=== PATIENT | female | born 1940 | race Caucasian/White ===

== ENCOUNTER 2018-08-10 21:20 | Inpatient (IN) ==
[2018-08-10] MEDS ORDERED: 0.9 % Sodium Chloride 500 ML IVC ONE (22:51)
[2018-08-10] MEDS ORDERED: valACYclovir 500 MG TABLET PO SCH (23:00)
[2018-08-10 23:23] LABS: Basophils % 0.2 %; Eosinophils % 0.6 %; Hemoglobin 12.4 g/dL (11.5-15.4); Immature Granulocytes % 0.2 % (0-4); Lymphocytes # 0.9 K/mcL (0.6-4.6); Lymphocytes % 18.5 %; Mean Corpuscular HGB Conc 34.4 g/dL (31.6-35.5); Mean Corpuscular Hemoglobin 31.1 pg (28.0-33.3); Mean Corpuscular Volume 90.2 fL (83.0-100.0); Mean Platelet Volume 11.3 fL (9.4-12.4); Monocytes # 0.4 K/mcL (0.0-1.3); Monocytes % 7.6 %; Neutrophils # 3.5 K/mcL (1.6-8.9); Platelet Count 138 K/mcL (140-400); Red Blood Count 3.99 M/mcL (3.82-4.97); Red Cell Distribution Width 12.3 % (11.5-14.5); Segmented Neutrophils % 72.9 %
[2018-08-10 23:40] LABS: Alanine Aminotransferase 10 Units/L (7-52); Albumin 3.3 g/dL (3.5-5.7); Albumin/Globulin Ratio 1.3 (1.1-2.2); Alkaline Phosphatase 44 Units/L (34-104); Aspartate Amino Transferase 19 Units/L (13-39); BUN/Creatinine Ratio 14 (6-26); Bilirubin,Total 1.1 mg/dL (0.3-1.0); Blood Urea Nitrogen 15 mg/dL (8-23); Calcium 8.1 mg/dL (8.6-10.3); Carbon Dioxide 23 mEq/L (23-29); Chloride 96 mEq/L (98-107); Globulin 2.5 g/dL (2.4-3.5); Glucose 161 mg/dL (70-105); Magnesium 1.4 mg/dL (1.6-2.6); Osmolality,Calculated 272 (280-300); Potassium 2.9 mEq/L (3.5-5.1); Sodium 129 mEq/L (136-145); Total Protein 5.8 g/dL (6.4-8.9); Troponin I < 0.03 ng/mL (< 0.04); eGFR For Non-African Americans 51 (> 60)
[2018-08-10] MEDS ORDERED: Magnesium Oxide 400 MG TABLET PO ONE (23:54)
--- NOTE | 2018-08-10 23:56 | Emergency Department Note ---
Disposition Clinical Impression: Hyponatremia Disposition: Admitted As Inpatient Condition: Fair Time of Disposition: 23:56 General Adult HPI - General Chief complaint: ED Upper Respiratory Infection Stated complaint: Flu symptoms Time Seen by Provider: 08/10/18 22:35 Source: patient, family Limitations: no limitations Nursing Notes Reviewed: Yes Vital Signs Reviewed: Yes - History of Present Illness HPI Narrative: Ms. Soto about 10 days ago as having symptoms of bronchitis with a cough and sore throat. She received prednisone and doxycycline and is feeling better. About 3 days ago she noticed some burning and tingling on her left side and noticed that she had a red rash which seems to be getting a little bit worse. She since stopped the doxycycline and the prednisone thinking they might be jasmin rits for the rash. She did have chickenpox as a child. No fever no chills in terms of the cough and bronchitis symptoms she is actually feeling a lot better. She came to the emergency department today accompanied by her and son because she passed out 3 times today. She remembers each event and was standing each time and noticed that she felt very dizzy and lightheaded. Up until about 3 days ago she was having some diarrhea. Denies any blood in the stool. She has had a normal stool since then but has had no appetite and very little by mouth intake. She has not been taking her medications either. No nausea or vomiting but as above no appetite which is limited her by mouth intake. Before the syncopal episodes she denies any chest pain abdominal pain palpitations or headache. Her tells me that she was unresponsive for at least a couple of minutes each time however Ms. Soto herself does remember each event and her trying to get her attention. She does have a heart history with a stent placement 4 but is never had syncopal episodes before. Pain Scale: 9 - Related Data Home Medications Medication Instructions Recorded Confirmed Aspirin [Lo-Dose Aspirin EC] 81 mg PO DAILY 07/18/16 08/10/18 Atorvastatin Calcium [Lipitor] 80 mg PO DAILY 07/18/16 08/10/18 Metoprolol [Lopressor] 100 mg PO DAILY 07/18/16 08/10/18 Potassium Chloride [Klor-Con 10 meq PO QID 07/18/16 08/10/18 Sprinkle] metFORMIN [Glucophage] 1,000 mg PO BIDWM 07/18/16 08/10/18 Doxycycline Hyclate 100 mg PO BID 08/10/18 08/10/18 Lisinopril [Zestril] 20 mg PO DAILY 08/10/18 08/10/18 PredniSONE [Deltasone] 40 mg PO DAILY 08/10/18 08/10/18 hydroCHLOROthiazide 25 mg PO DAILY 08/10/18 08/10/18 [Hydrochlorothiazide] Allergies Allergy/AdvReac Type Severity Reaction Status Date / Time No Known Allergies Allergy Verified 08/10/18 21:39 Constitutional: Denies: fever, chills ENT ED: Denies: throat pain, congestion Cardiovascular: Reports: syncope. Denies: chest pain, palpitations, dyspnea on exertion Respiratory: Denies: cough, dyspnea Gastrointestinal: Reports: diarrhea. Denies: abdominal pain, nausea, vomiting Genitourinary: Denies: urgency, dysuria, frequency Musculoskeletal: Reports: back pain (Associated with rash) Integumentary: Reports: rash Neurological: Denies: headache Endocrine: Reports: fatigue Hematological/Lymphatic: Denies: easy bleeding, easy bruising Past Medical History - Past Medical History Medical history: Reports: arthritis, coronary artery disease, diabetes, hyperlipidemia, hypertension, other Surgical history: Reports: appendectomy, cholecystectomy, hysterectomy Psychiatric history: Reports: no psych history CLINICAL EDITOR history: Reports: bilateral tubal ligation - Social History Smoking Status: Never smoker Smokeless Tobacco Status: No Alcohol use: Reports: none Drug use: Reports: none Physical Exam - General Limitations: no limitations General appearance: alert, in no apparent distress - Head Head exam: atraumatic, normocephalic - Eye Eye exam: Present: normal appearance, PERRL, EOMI - ENT ENT exam: normal oropharynx, mucous membranes dry, normal external ear exam - Neck Neck exam: Present: normal inspection, other (Supple). Absent: lymphadenopathy - Chest Chest inspection: Present: normal inspection, symmetric chest wall rise - Respiratory Respiratory exam: Present: normal lung sounds bilaterally. Absent: respiratory distress, wheezes, stridor - Cardiovascular Cardiovascular exam: Present: regular rate, normal rhythm, normal heart sounds. Absent: systolic murmur, diastolic murmur - Abdominal Exam Abdominal exam: Present: soft, Non-Tender - Extremities Exam Extremities exam: Present: normal inspection. Absent: pedal edema - Neurological Exam Neurological exam: Present: alert, CN II-XII intact. Absent: motor sensory deficit - Psychiatric Psychiatric exam: Present: normal affect, normal mood - Skin Skin exam: Present: warm, dry, rash (Erythematous rash with groups of vesicles left flank and left abdomen.) Course Vital Signs Temperature 98.0 F 08/10/18 21:25 Pulse Rate 91 08/10/18 21:25 Respiratory Rate 20 08/10/18 21:25 Blood Pressure 121/58 08/10/18 21:25 O2 Sat by Pulse Oximetry 99 08/10/18 21:25 Temperature 98.0 F 08/10/18 21:25 Pulse Rate 84 08/11/18 00:00 Respiratory Rate 18 08/11/18 00:00 Blood Pressure 113/58 08/11/18 00:00 O2 Sat by Pulse Oximetry 100 08/11/18 00:00 Oxygen Delivery Oxygen Delivery Room Air Medical Decision Making - MDM Narrative Medical decision making narrative: Hyponatremia. This is significantly low compared to past values. Might be prudent to hydrate her with 0.9 overnight and rechecked this in the morning. She and are in agreement with admission. They name Dr. Fofana as their primary care physician. He was called and the case was presented. He accepted admission. She is in stable condition at transfer. Hypokalemia. K rider was added 20 mEq here in the emergency department and will be rechecked in the morning. Hypomagnesemia. 800 mg magnesium oxide by mouth was given and tolerated well. Herpes zoster. Rash is most consistent with this etiology. Valtrex 1 g given here in the ER which she tolerated well. - Lab Data Lab results reviewed: Yes I reviewed the patient's lab results. Result diagrams: 08/10/18 23:20 08/10/18 23:20 Lab Results 08/10/18 08/10/18 Range/Units 23:20 23:20 WBC 4.9 (4.3-11.1) K/mcL RBC 3.99 (3.82-4.97) M/mcL Hgb 12.4 (11.5-15.4) g/dL Hct 36.0 (35.3-44.9) % MCV 90.2 (83.0-100.0) fL MCH 31.1 (28.0-33.3) pg MCHC 34.4 (31.6-35.5) g/dL RDW 12.3 (11.5-14.5) % Plt Count 138 L (140-400) K/mcL MPV 11.3 (9.4-12.4) fL Immature Gran % 0.2 (0-4) % Seg Neutrophils % 72.9 % Lymphocytes % 18.5 % Monocytes % 7.6 % Eosinophils % 0.6 % Basophils % 0.2 % Neutrophils # 3.5 (1.6-8.9) K/mcL Lymphocytes # 0.9 (0.6-4.6) K/mcL Monocytes # 0.4 (0.0-1.3) K/mcL Eosinophils # 0.0 (0.0-0.6) K/mcL Basophils # 0.0 (0.0-0.2) K/mcL Sodium 129 L (136-145) mEq/L Potassium 2.9 L (3.5-5.1) mEq/L Chloride 96 L (98-107) mEq/L Carbon Dioxide 23 (23-29) mEq/L BUN 15 (8-23) mg/dL Creatinine 1.04 (0.60-1.20) mg/dL Est GFR ( Amer) > 60 (> 60) Est GFR (Non-Af Amer) 51 L (> 60) BUN/Creatinine Ratio 14 (6-26) Glucose 161 H (70-105) mg/dL Calculated Osmolality 272 L (280-300) Calcium 8.1 L (8.6-10.3) mg/dL Magnesium 1.4 L (1.6-2.6) mg/dL Total Bilirubin 1.1 H (0.3-1.0) mg/dL AST 19 (13-39) Units/L ALT 10 (7-52) Units/L Alkaline Phosphatase 44 (34-104) Units/L Troponin I < 0.03 (< 0.04) ng/mL Serum Total Protein 5.8 L (6.4-8.9) g/dL Albumin 3.3 L (3.5-5.7) g/dL Globulin 2.5 (2.4-3.5) g/dL Albumin/Globulin Ratio 1.3 (1.1-2.2) - EKG Data EKG #1 EKG attestation: Yes I reviewed and interpreted this EKG. EKG results narrative: EKG as interpreted by me normal sinus rhythm [address] elevations or depressions. Normal axis. No evidence of hypertrophy. T-wave flattening in aVF. No comparison available.
[2018-08-11] MEDS ORDERED: Magnesium Oxide 400 MG TABLET PO ONE (00:51)
[2018-08-11] MEDS ORDERED: 0.9 % Sodium Chloride 1,000 ML IVC SCH (00:51)
[2018-08-11] MEDS ORDERED: Ondansetron ODT 4 MG TAB.RAPDIS SL PRN (00:51)
[2018-08-11] MEDS ORDERED: Naloxone 0.4 MG/ML INJ IVP PRN (00:51)
[2018-08-11] MEDS ORDERED: Ketorolac 30 MG/ML VIAL IVP ONE (02:05)
[2018-08-11] MEDS: 0.9 % Sodium Chloride w KCl 20 MEQ/1,000 ML MLS IVC SCH ×2 (02:28→10:55)
[2018-08-11] MEDS: *HR* Enoxaparin 40 MG/0.4 ML SYRINGE SQ SCH (05:26)
--- NOTE | 2018-08-11 06:57 | Internal Med History&Physical ---
Date of Encounter: 08/13/18 Time of Encounter: 06:52 Assessment and Plan (1) Syncope Status: Acute Patient has a history of 2 syncopal episodes at home. Likely due to poor by mouth intake, her recent illness, electrolyte imbalance, and her shingles. She was hypotensive in the ER where her blood pressure was 93/50 and is now improved after IV fluids. Currently I do not see any acute neurological changes. classroom monitor shows normal sinus rhythm. We will continue with IV fluids, correct electrolyte imbalance, watches his she regains her ADLs. Would also add a chest x-ray if not done in the ER as well as a 12-lead EKG. I doubt CT of the head indicated as she is neurologically intact at this time. Qualifiers: Syncope type: unspecified Qualified Code(s): R55 - Syncope and collapse (2) Hypokalemia Status: Acute Severe hypokalemia likely secondary to her diarrhea, poor oral intake and her cessation of her potassium and she takes 4 times a day at home. We will replace intravenously as well as orally. She is on a cardiac surgeon and no dysrhythmias noted of note seen. (3) Hyponatremia Status: Acute History of hyponatremia of 129 on admission. Likely related to her diarrhea, poor oral intake and her hydrochlorothiazide use. IV saline as been initiated. We will follow. We will hold her hydrochlorothiazide for now. (4) Shingles Status: Acute Acute shingles and has started Valtrex. We will continue 1000 mg 3 times a day for 7 days. She does not tolerate prednisone. We will add gabapentin in addition to Toradol for pain control. She is currently in isolation. Qualifiers: Herpes zoster complications: without complications Qualified Code(s): B02.9 - Zoster without complications (5) History of coronary artery disease Status: Acute No angina or CHF. She is on a cardiac surgeon. (6) Diabetes mellitus Status: Acute History of diabetes mellitus. We will resume her usual dose of metformin and follow her blood sugars and her oral intake. Qualifiers: Diabetes mellitus type: type 2 Diabetes mellitus continuous churn buttermaker insulin use: without continuous churn buttermaker use Diabetes mellitus complication status: without complication Qualified Code(s): E11.9 - Type 2 diabetes mellitus without complications (7) Hypertension Status: Acute Long-standing history of hypertension. In the ER apparently she was hypotensive with blood pressure initially 93/50. Continue IV fluids and was see how she does when she is on her feet. Qualifiers: Hypertension type: essential hypertension Qualified Code(s): I10 - Essential (primary) hypertension Internal Medicine - H&P: HPI Chief complaint: I passed out at home Admitted From: Emergency Dept Plans for Post Hospital Care: Home History of present illness: Ms. Soto is a 77 year old female with known history of hypertension, diabetes, CAD with previous stent placement is generally of good health for her age was admitted from the emergency room with history of hyponatremia hypokalemia and syncopal episode 2 Patient states that she was doing well until about a week ago she started having a productive cough with green sputum and diarrhea. She happened to be in [facility] and went to an urgent care there and was treated for bronchitis with prednisone and doxycycline. She states to the prednisone made her feel bad and she could not sleep for 3 days so she stopped the medication. She had very little to eat or drink for 3 days. She also stopped all of her chronic medications. It was about that time she started getting shingles rash on her abdomen that radiates around to her back. She states the diarrhea had stopped after having it for about a week. She has had no fever but still has some chills yesterday. She states that she "passed out" twice on day of admission. She was getting up off the couch to go the bathroom and she was woozy and nauseated and had a witnessed syncopal episode as her was there. "I felt woozy and lightheaded and had severe nausea" and then I went down apparently. She was not out for long. No seizure activity, no unilateral focal deficit, no chest pain, no palpitations, no trauma. Family brought her to the emergency room. She was found to have a sodium 129 and potassium of 2.9. She typically takes potassium supplement 4 times a day at home, has had none for several days now that she has been ill. Her initial blood pressure was 93/50 is now improved after IV fluids. She states now she feels better. She denies any chest pain, palpitations, dyspnea, abdominal pain, nausea. Biggest complaint is pain from the shingles. She was given IV Toradol through the night as well as Tylenol. Past Med Surg Social Fam HX - Past Medical History Medical history: arthritis, coronary artery disease, diabetes, hyperlipidemia, hypertension Additional medical history: urinary frequency at times Psychiatric history: no psych history - Past Surgical History Surgical History: appendectomy, cholecystectomy, hysterectomy Additional surgical history: 4 CARDIAC Stents r70qbmpi ago, bladder prolapse - Social History Smoking Status: Never smoker Smokeless Tobacco Status: No Alcohol use: none Drug use: none Current living situation: Home - Independent Activity Level: Independent ambulation Recent Out of Country Travel Within the Last 8 Weeks: No Exposure or Possible Exposure to Illness During Travel: No - Family History Mother Living Status: Age at : 32 Cause of : in her sleep Hx Family Cancer: Yes Father Living Status: Age at : 44 Cause of : Lung cancer Hx Family Cancer: Yes Sister Living Status: Hx Family Cancer: Yes Internal Medicine - H&P: Meds Aspirin [Lo-Dose Aspirin EC] 81 mg PO DAILY 07/18/16 [History] Atorvastatin Calcium [Lipitor] 80 mg PO DAILY 07/18/16 [History] Metoprolol [Lopressor] 100 mg PO DAILY 07/18/16 [History] Potassium Chloride [Klor-Con Sprinkle] 10 meq PO QID 07/18/16 [History] metFORMIN [Glucophage] 1,000 mg PO BIDWM 07/18/16 [History] Lisinopril [Zestril] 20 mg PO DAILY 08/10/18 [History] Acetaminophen [Tylenol] 1,000 mg PO Q6HR PRN tablet 08/11/18 [Rx] Gabapentin [Neurontin] 300 mg PO TID 10 Days #30 capsule 08/11/18 [Rx] Ketorolac [Toradol] 10 mg PO Q6HR PRN #20 tablet 08/11/18 [Rx] Valacyclovir HCl [Valtrex] 1,000 mg PO TID 7 Days #21 tab 08/11/18 [Rx] Allergy/AdvReac Type Severity Reaction Status Date / Time No Known Allergies Allergy Verified 08/10/18 21:39 - Constitutional Constitutional: anorexia, chills, fatigue, falls (Syncopal episode 2), lethargy, no fever(s) - EENT Eyes: no change in vision Ears: no ear discharge, no ear pain Nose, mouth and throat: sore throat (She has had a bit of a tickle in her throat from coughing), no dry mouth, no neck pain - Cardiovascular Cardiovascular ROS IM: lightheadedness (And syncope 2), syncope (As in history of present illness), no chest pain, no diaphoresis, no dyspnea, no dyspnea on exertion, no edema, no palpitations - Respiratory Respiratory: cough (She has had some green sputum production with her bronchitis), no wheezing, no pain on inspiration - Gastrointestinal Gastrointestinal: diarrhea (Diarrhea is now resolved with the past couple of days.), nausea (Nausea but no vomiting) - Genitourinary Genitourinary: flank pain (Patient has flank pain from the shingles), no dysuria Menstruation: post hysterectomy - Musculoskeletal Musculoskeletal ROS IM: back pain (Pain from her shingles in the back radiating to the abdomen) - Integumentary Integumentary IM: rash (Shingles rash on her left flank and around to the left upper abdomen and lower chest region) - Neurological Neurological ROS: frequent falls (Syncopal episode 2), weakness, other (Syncope twice as in history of present illness) - Psychiatric Psychiatric: no difficulty concentrating, no visual hallucinations - Constitutional Vitals: Temp Pulse Resp BP Pulse Ox 97.7 F 85 16 121/76 96 08/11/18 04:00 08/11/18 04:00 08/11/18 04:00 08/11/18 04:00 08/11/18 04:00 General appearance: Present: A&O X 3, no acute distress, answers questions appropriately - Head Head exam: Present: atraumatic - Eye Eye exam: Present: EOMI. Absent: nystagmus - ENT ENT exam: Present: mucous membranes moist, normal oropharynx, TM's normal bilaterally - Neck Neck exam general surgery: Absent: lymphadenopathy, tenderness, nuchal rigidity, thyromegaly - Respiratory Respiratory exam: Present: CTAB - Cardiovascular Cardiovascular exam: Present: RRR, +S1, +S2 - GI/Abdominal GI/Abdominal exam: Present: soft. Absent: hepatomegaly, mass, tenderness - Extremities Exam Extremities exam: Present: full ROM. Absent: calf tenderness, pedal edema, tenderness - Neurological Exam Neurological exam: Present: alert, CN II-XII intact, oriented X3, no focal deficits. Absent: speech deficit - Skin Additional comments: Large erythematous vesicular rash on her back on the left side at approximately T10-T12 with extension around to the left upper abdomen and lower chest area consistent with herpes zoster. Most the vesicles are open and not crusted Internal Med - H&P Results - Labs CBC & Chem 7: 08/10/18 23:20 08/12/18 05:30 Labs: Short CBC 08/10/18 Range/Units 23:20 WBC 4.9 (4.3-11.1) K/mcL Hgb 12.4 (11.5-15.4) g/dL Hct 36.0 (35.3-44.9) % Plt Count 138 L (140-400) K/mcL Neutrophils # 3.5 (1.6-8.9) K/mcL BMP 08/10/18 23:20 Sodium 129 L Potassium 2.9 L Chloride 96 L Carbon Dioxide 23 BUN 15 Creatinine 1.04 Glucose 161 H Calcium 8.1 L Cardiac Enzymes 08/10/18 Range/Units 23:20 Troponin I < 0.03 (< 0.04) ng/mL Liver Function 08/10/18 Range/Units 23:20 Total Bilirubin 1.1 H (0.3-1.0) mg/dL AST 19 (13-39) Units/L ALT 10 (7-52) Units/L Alkaline Phosphatase 44 (34-104) Units/L Albumin 3.3 L (3.5-5.7) g/dL Labs have been reviewed. Admission sodium 129, potassium 2.9. Surprisingly her renal function is good. Troponin is less than 0.03. Surprisingly her white blood cell count is normal.
[2018-08-11 07:04] LABS: BUN/Creatinine Ratio 12 (6-26); Blood Urea Nitrogen 12 mg/dL (8-23); Calcium 7.5 mg/dL (8.6-10.3); Carbon Dioxide 26 mEq/L (23-29); Chloride 98 mEq/L (98-107); Glucose 131 mg/dL (70-105); Osmolality,Calculated 276 (280-300); Potassium 3.2 mEq/L (3.5-5.1); Sodium 132 mEq/L (136-145); eGFR For Non-African Americans 53 (> 60)
[2018-08-11] MEDS: Metoprolol 100 MG TABLET PO SCH (08:44)
[2018-08-11] MEDS: Lisinopril 20 MG TABLET PO SCH (08:45)
[2018-08-11] MEDS: *HR* Metformin 500 MG TABLET PO SCH ×2 (08:45→16:38)
[2018-08-11] MEDS: Aspirin Enteric Coated 81 MG Tablet PO SCH (08:45)
--- NOTE | 2018-08-11 08:57 | Electrocardiograph Report ---
[place] [id number] Test Date: 2018-08-10 Pat Name: Haydee Soto Department: [facility]2 Room: 113 Gender: F Physics Department Chair: : 1940 Requested By: Edilberto Phelps Order Number: [id number] Reading MD: Christopher Williamson Measurements Intervals [place] Rate: 89 P: 53 IN: 132 QRS: 5 QRSD: 89 T: 29 QT: 364 QTc: 443 Interpretive Statements Sinus rhythm Atrial premature complex Electronically Signed On 08-11-2018 8:56:11 EST by Christopher Williamson
[2018-08-11] MEDS ORDERED: valACYclovir 500 MG TABLET PO SCH (09:00)
[2018-08-11] MEDS: valACYclovir 500 MG TABLET PO SCH ×3 (10:53→20:12)
[2018-08-11] MEDS: Gabapentin 300 MG CAPSULE PO SCH ×3 (10:54→20:11)
[2018-08-11] MEDS ORDERED: Ketorolac 30 MG/ML VIAL IVP PRN (11:04)
[2018-08-11 12:23] LABS: Potassium 4.3 mEq/L (3.5-5.1)
--- NOTE | 2018-08-11 12:37 | Discharge Summary ---
- NOTES TO OUTPATIENT PROVIDER Notes to Outpatient Provider: #1. Order for follow-up BMP arranged. #2. Meds for shingles include Toradol, Valtrex and gabapentin (patient does not tolerate prednisone) Date of Encounter: 08/12/18 Time of Encounter: 10:15 - Discharge Diagnosis (1) Syncope Priority: Primary Status: Acute Comments: Patient had 2 syncopal episodes at home. She had no cardiac or respiratory symptoms are related to this. Workup in the ER included electrolytes renal function and monitoring. She had hyponatremia, hypokalemia and history of recent bronchitis as well as diarrhea. Likely it was a vasovagal type episode or related to her electrolytes and acute illness. She also is suffering from shingles. She had no further syncopal type symptoms. After rehydration, replacement of potassium sodium, treatment for her shingles she was able to be up and about and able to be discharged to home for ongoing medical care. program checker remained in normal sinus rhythm. Qualifiers: Syncope type: unspecified Qualified Code(s): R55 - Syncope and collapse (2) Hypokalemia Priority: Secondary Status: Acute Comments: Her severe hypokalemia was likely related to her being ill, poor oral intake, diarrhea, and not taking her potassium 4 times a day that she takes chronically. She also has long-standing history of taking hydrochlorothiazide. She was given potassium boluses intravenously as well as oral supplement. Her hydrochlorothiazide was held. Her diet resumed and was doing well. Discharge potassium was normal. She will restart her potassium 4 times a day and follow up lab work has been ordered. She had no cardiac dysrhythmias noted on monitor. (3) Hyponatremia Priority: Secondary Status: Acute Comments: Patient has severe hyponatremia on admission. Likely from her poor oral intake, diarrhea, as well as long-standing hydrochlorothiazide use. She was given saline. Her sodium improved dramatically. She is able to resume normal diet. By time of discharge she was up and ambulatory and safe for discharge. Follow- up lab work has been ordered. (4) Shingles Priority: Secondary Status: Acute Comments: Patient has relatively severe case of shingles in the left back radiating around to the right upper abdomen low chest area. She did not tolerate prednisone for her bronchitis. She was placed on gabapentin which seem to do a very good job controlling the pain. This may made her a bit sleepy though. She was given Toradol on occasion as well. Biggest complaint was itching. At discharge she was placed on continued Valtrex, gabapentin, and Toradol. She will follow-up in the office. No secondary infection or complication noted. Qualifiers: Herpes zoster complications: without complications Qualified Code(s): B02.9 - Zoster without complications (5) History of coronary artery disease Priority: Secondary Status: Acute Comments: Long-standing history of coronary artery disease but no angina or CHF noted. Monitoring showed no dysrhythmia. (6) Diabetes mellitus Priority: Secondary Status: Acute Comments: Long staying history of diabetes under good control. She had no hypoglycemia noted. Last glycohemoglobin 6.6% in February. Qualifiers: Diabetes mellitus type: type 2 Diabetes mellitus custodial insulin use: without terminal make up operator use Diabetes mellitus complication status: without complication Qualified Code(s): E11.9 - Type 2 diabetes mellitus without complications (7) Hypertension Priority: Secondary Status: Acute Comments: Long-standing history of hypertension she takes hydrochlorothiazide but this was held because of electrolyte imbalance. She will continue with lisinopril. We will monitor pressures at home as well. Follow-up is scheduled in the office. Qualifiers: Hypertension type: essential hypertension Qualified Code(s): I10 - Essential (primary) hypertension (8) Vomiting Priority: Secondary Status: Acute Comments: The patient had been hospitalized for about 12 hours or so she had an episode of vomiting without any prodromal symptoms. Her examination was unremarkable. Subsequently she was able to resume oral intake without further vomiting. She did have 3 episodes of diarrhea/loose stools during the hospital stay. The vomi ting delayed her discharge to the next morning as she had already had electrolyte imbalance issues. At this point I do not feel further GI workup warranted. Qualifiers: Vomiting type: unspecified Vomiting Intractability: non-intractable Nausea presence: without nausea Qualified Code(s): R11.11 - Vomiting without nausea Hospital course: Ms. Soto is a 77 year old female is admitted from the ER after having had 2 syncopal episodes. She is found to be severely hypo-kalemia, hyponatremic and have shingles. Please see the above diagnoses. By time of discharge patient was ambulatory, tolerating oral intake adequately, adequate pain control and potassium was normal and sodium near normal. She will follow-up in the office in a few days. Discharge discussed with: patient - Time Spent with Patient Total time spent providing and/or coordinating discharge services: - Discharge Medications Prescriptions: New Acetaminophen [Tylenol] 1,000 mg PO Q6HR PRN tablet PRN Reason: Fever/Pain Ketorolac [Toradol] 10 mg PO Q6HR PRN #20 tablet PRN Reason: Mild Pain Gabapentin [Neurontin] 300 mg PO TID 10 Days #30 capsule Valacyclovir HCl [Valtrex] 1,000 mg PO TID 7 Days #21 tab Continue metFORMIN [Glucophage] 1,000 mg PO BIDWM Potassium Chloride [Klor-Con Sprinkle] 10 meq PO QID Metoprolol [Lopressor] 100 mg PO DAILY Atorvastatin Calcium [Lipitor] 80 mg PO DAILY Aspirin [Lo-Dose Aspirin EC] 81 mg PO DAILY Lisinopril [Zestril] 20 mg PO DAILY Discontinued PredniSONE [Deltasone] 40 mg PO DAILY hydroCHLOROthiazide [Hydrochlorothiazide] 25 mg PO DAILY Doxycycline Hyclate 100 mg PO BID Home Medications: Aspirin [Lo-Dose Aspirin EC] 81 mg PO DAILY 07/18/16 [History] Atorvastatin Calcium [Lipitor] 80 mg PO DAILY 07/18/16 [History] Metoprolol [Lopressor] 100 mg PO DAILY 07/18/16 [History] Potassium Chloride [Klor-Con Sprinkle] 10 meq PO QID 07/18/16 [History] metFORMIN [Glucophage] 1,000 mg PO BIDWM 07/18/16 [History] Lisinopril [Zestril] 20 mg PO DAILY 08/10/18 [History] Acetaminophen [Tylenol] 1,000 mg PO Q6HR PRN tablet 08/11/18 [Rx] Gabapentin [Neurontin] 300 mg PO TID 10 Days #30 capsule 08/11/18 [Rx] Ketorolac [Toradol] 10 mg PO Q6HR PRN #20 tablet 08/11/18 [Rx] Valacyclovir HCl [Valtrex] 1,000 mg PO TID 7 Days #21 tab 08/11/18 [Rx] Allergies/Adverse Reactions: Allergy/AdvReac Type Severity Reaction Status Date / Time No Known Allergies Allergy Verified 08/10/18 21:39 Date of admission: 08/11/18 00:48 Primary care physician: Marcus Fofana MD Discharging clinician: Marcus Fofana Anticipated date of discharge: 08/12/18 - Constitutional Vitals: Temp Pulse Resp BP Pulse Ox 98.0 F 53 16 130/73 98 08/11/18 10:00 08/11/18 10:00 08/11/18 10:00 08/11/18 10:00 08/11/18 10:00 General appearance: Present: A&O X 3, no acute distress, answers questions appropriately - Respiratory Respiratory exam: Present: CTAB Additional comments: She had a mild cough, no respiratory distress. Lungs were clear. - Cardiovascular Cardiovascular exam: Present: RRR, +S1, +S2 - GI/Abdominal GI/Abdominal exam: Present: soft. Absent: tenderness - Extremities Exam Extremities exam: Absent: calf tenderness, pedal edema - Skin Additional comments: Healing vesicular erythematous rash in the left flank radiating around to the left upper abdomen lower chest area consistent with shingles. No new vesicles noted. It is starting to dry up. No secondary infection noted. - Patient Status Disposition: Home, Self-Care Condition: Good Functional capacity at discharge: independent ambulation Overall status at discharge: patient is progressing back to baseline - Discharge Instructions Instructions: Herpes Zoster (DC), Hyponatremia (DC) Follow Up With: Marcus Fofana MD [Primary Care Provider] - 08/15/18 10:30 am (Followup later this week) - Diet and Activity Activity: increase activity as tolerated Diet: diabetic diet
[2018-08-11 16:11] LABS: Amylase 27 Units/L (29-103); Lipase 55 Units/L (11-82)
[2018-08-11] MEDS: 0.9 % Sodium Chloride 1,000 ML IVC SCH (17:10)
--- NOTE | 2018-08-11 19:27 | Event Note ---
Date of Encounter: 08/11/18 Time of Encounter: 19:25 Patient was doing better today, however prior to discharge she vomited. She is also had 2 loose bowel movements today. Because of her admission diagnoses hypokalemia, hyponatremia, hypotension, and syncopal episode I felt that it would be prudent to keep her and watch her longer. She meets criteria for admission by the [facility] remediation consultant who contacted me this afternoon from [place]. We will continue IV fluids but change from saline with potassium to plain saline. Follow-up lab work ordered for the morning. Her lungs are clear tonight. Heart regular rate without murmur. Abdomen is soft and nontender. She is up and ambulatory in the room but looks a bit disheveled. Neurologically appears be intact. Her shingles pain seems be doing very well with gabapentin. She will be reevaluated in the morning.
[2018-08-12] MEDS: 0.9 % Sodium Chloride 1,000 ML IVC SCH (03:23)
[2018-08-12] MEDS: *HR* Enoxaparin 40 MG/0.4 ML SYRINGE SQ SCH (04:39)
[2018-08-12 06:00] LABS: BUN/Creatinine Ratio 11 (6-26); Blood Urea Nitrogen 10 mg/dL (8-23); Carbon Dioxide 23 mEq/L (23-29); Chloride 105 mEq/L (98-107); Glucose 96 mg/dL (70-105); Osmolality,Calculated 275 (280-300); Potassium 4.2 mEq/L (3.5-5.1); Sodium 133 mEq/L (136-145); eGFR For Non-African Americans > 60 (> 60)
[2018-08-12] MEDS: Aspirin Enteric Coated 81 MG Tablet PO SCH (08:47)
[2018-08-12] MEDS: Gabapentin 300 MG CAPSULE PO SCH ×2 (08:47→13:27)
[2018-08-12] MEDS: Metoprolol 100 MG TABLET PO SCH (08:47)
[2018-08-12] MEDS: valACYclovir 500 MG TABLET PO SCH ×2 (08:48→13:26)
[2018-08-12] MEDS: Lisinopril 20 MG TABLET PO SCH (08:48)
[2018-08-12] MEDS: *HR* Metformin 500 MG TABLET PO SCH (08:48)
[2018-08-12 11:04] VITALS: BP 115/70
--- NOTE | 2018-08-12 18:20 | Electrocardiograph Report ---
[place] [id number] Test Date: 2018-08-11 Pat Name: Haydee Soto Department: 2001 Room: 113 Gender: F Manager Fleet: Tlc : [id number] Requested By: Marcus Fofana Order Number: [id number] Reading MD: Yenny Adams Measurements Intervals [place] Rate: 57 P: 48 MO: 145 QRS: 9 QRSD: 85 T: 19 QT: 426 QTc: 420 Interpretive Statements SINUS BRADYCARDIA Electronically Signed On 08-12-2018 18:18:57 EST by Yenny Adams
== END 2018-08-12 15:07 | disposition home or self-care (01) | DRG 312 ==
LOC: INPGRE 21:20 → EMEROOGRE 21:20 → INPGRE 08-11 01:22
PROVIDERS: ADMIT Family Medicine; ATTEND Family Medicine